=== PATIENT | female | born 1930 | race Caucasian/White ===

== ENCOUNTER → 2017-08-27 | Outpatient (CLI) | payer MEDICARE, OTHER ==
--- NOTE | 2017-08-27 09:29 | RAD ---
EXAM DESCRIPTION: Shoulder,Left 2 or More Views CLINICAL HISTORY: PAIN IN left SHOULDER COMPARISON: None Available. TECHNIQUE: Four views of the left shoulder. FINDINGS: There is minimal change between internal and external rotation views rotation. Degenerative changes are seen at the humeral head with eroded sclerotic appearance of the glenoid fossa consistent with chronic cartilage loss. Tendon suture anchor seen in the proximal humerus. On the transaxillary view, deformity suggests old healed fracture. Mild degenerative changes are seen in the lower C-spine. IMPRESSION: Degenerative changes as described. Electronically signed by: Oumar Bowles MD 08/27/2017 9:27 AM CDT
== END ==
LOC: RAD 08:14
PROVIDERS: ATTEND Orthopaedic Surgery
DX: M25.512 Pain in left shoulder (principal)

== ENCOUNTER → 2017-10-29 | Outpatient (CLI) | payer MEDICARE, OTHER ==
--- NOTE | 2017-10-29 11:12 | CT ---
CT right shoulder without contrast INDICATION: Rotator cuff syndrome shoulder pain TECHNIQUE: Helical CT images the right shoulder with multiplanar reformats This exam was performed according to our departmental dose-optimization program, which includes automated exposure control, adjustment of the mA and/or kV according to patient size and/or use of iterative reconstruction technique. FINDINGS: There is advanced glenohumeral osteoarthrosis. There are 2 metallic suture anchors in the greater tuberosity related to prior rotator cuff repair. Prominent osteophytes throughout the glenohumeral joint with subchondral cysts and joint space narrowing. Prominent osteophytes along the bicipital groove as well. No soft tissue mass or pathologic adenopathy in the imaged region. There is retroversion of the glenoid related to the osteoarthrosis without decentering of the humerus. Mild narrowing of the subacromial space. Previous subacromial decompression. Generalized grade 1 fatty marbling of the rotator cuff muscle bellies without end-stage atrophy. Bones are osteopenic or osteoporotic. IMPRESSION: Advanced osteoarthrosis right glenohumeral joint with retroversion of the glenoid but no decentering of the humerus Electronically signed by: Nasir Ramsey MD 10/29/2017 11:04 AM CDT
== END ==
LOC: CT 10:14
PROVIDERS: ATTEND Orthopaedic Surgery
DX: M75.101 Unspecified rotator cuff tear or rupture of right shoulder, not specified as traumatic (principal); M19.011 Primary osteoarthritis, right shoulder

== ENCOUNTER → 2017-11-21 | Outpatient (CLI) | payer MEDICARE, OTHER ==
--- NOTE | 2017-11-22 09:54 | CT ---
CT right shoulder without contrast INDICATION: Primary osteoarthrosis shoulder pain preoperative planning protocol TECHNIQUE: Helical CT images right shoulder This exam was performed according to our departmental dose-optimization program, which includes automated exposure control, adjustment of the mA and/or kV according to patient size and/or use of iterative reconstruction technique. FINDINGS: Multifocal scarring in the right lung without focal mass. The field of view is primarily scapula. Portions of the humerus are not included on the study. There is advanced osteoarthrosis of the glenohumeral joint with prominent subchondral cysts and [id number] joint space narrowing. There is retroversion of the glenoid. No decentering of the humerus. No aggressive destructive process. Prominent osteophytes. Evidence of previous subacromial decompression IMPRESSION: Preoperative planning protocol CT right shoulder with only partial visualization of the humerus centered over the scapula Advanced osteoarthrosis of the right glenohumeral joint Metallic suture anchors noted on the waiter/waitress tourist class film over the humerus not visible on the axial images. Electronically signed by: Nasir Ramsey MD 11/22/2017 9:52 AM CDT
== END ==
LOC: CT 13:06
PROVIDERS: ATTEND Orthopaedic Surgery
DX: M19.011 Primary osteoarthritis, right shoulder (principal)

== ENCOUNTER → 2017-12-06 | Outpatient (CLI) | payer MEDICARE, OTHER | LOC: LAB.O 16:29 | PROVIDERS: ATTEND Orthopaedic Surgery | DX: Z01.818 Encounter for other preprocedural examination (principal) ==

== ENCOUNTER 2017-12-19 05:08 | Inpatient (IN) | payer MEDICARE, OTHER ==
--- NOTE | 2017-12-14 11:01 | HP ---
CHIEF COMPLAINT: Right shoulder pain. HISTORY OF PRESENT ILLNESS: Ms. Madrid is an 87-year-old female with a history of pain in the right shoulder. She has a known rotator cuff tear with severe retraction. She has developed arthritis secondary to this tear. Because of failure of conservative measures and limitations in activities, she has requested operative intervention. After discussing the risks, benefits and alternatives to operative intervention which for her would include total shoulder arthroplasty, the patient has given informed consent. PAST SURGICAL HISTORY: 1. Tonsillectomy. 2. Exploratory laparotomy. 3. Thyroidectomy. 4. Laminectomy. 5. Cholecystectomy. 6. Bilateral rotator cuff repair. MEDICATIONS: 1. Bactrim. 2. Clopidogrel. 3. Dexamethasone. 4. Flonase/fluticasone. 5. Furosemide. 6. Levothyroxine. 7. Lisinopril. 8. Nexium. 9. Potassium. 10. Pravastatin. 11. Prednisone. 12. Rifampin. 13. Synthroid. 14. Voltaren Gel. ALLERGIES: NO KNOWN DRUG ALLERGIES. CODE STATUS: DNR. IMMUNIZATIONS: Up to date. FAMILY HISTORY: None pertinent to today's complaint. SOCIAL HISTORY: The patient does not drink, smoke or use any illicit drugs. REVIEW OF SYSTEMS: Negative except as indicated in the History of Present Illness. PHYSICAL EXAMINATION: VITAL SIGNS: Blood pressure 172/79. Pulse 77. Height 5'2". Weight 147 pounds. MENTAL STATUS: The patient is awake, alert, and is able to give a good history and participate in the physical. The patient is oriented to person, place and time. SKIN: Normal tone and turgor. HEENT: Normocephalic, atraumatic. Pupils equal, round and reactive. Mucosal membranes are moist. NECK: Normal range of motion. No thyromegaly, no lymphadenopathy. CHEST: Normal respiratory excursion. CARDIAC: Regular rate and rhythm. No murmurs, rubs or gallops. MUSCULOSKELETAL: The bilateral lower extremities show full range of motion without significant pain. She has intact sensation in both extremities and they are warm and well perfused. She has no deformity. She has no laxity and no malalignment. The left upper extremity shows some pain with range of motion of the shoulder, but she does maintain full abduction and forward flexion. She has no deformity and no crepitus. Sensation is intact. Community Health Worker strength is 5/5. The right upper extremity shows about 80 degrees of abduction today with severe pain at the terminal portion of that range. She has forward flexion to about 90 degrees. She does have crepitus throughout her range of motion. There is no deformity and no malalignment. Community Health Worker strength is 5/5. Sensation is intact. She has decreased strength in abduction as well as forward flexion. IMAGING: X-ray showed and MRI both show severe arthritis. MRI does show retracted tear of the rotator cuff. ASSESSMENT: 1. Rotator cuff arthropathy. PLAN: The plan at this point is for reverse total shoulder. We have discussed the risks, benefits, and alternatives to that and the patient has given informed consent. [facility][id number] [facility]
[2017-12-19] MEDS ORDERED: VANCOMYCIN HCL INJ 1,000 MG VIAL IVPB ONE ×3 (05:59→17:53)
[2017-12-19] MEDS ORDERED: SODIUM CHL 0.9% 100ML MINI-BAG 100 ML IVPB ONE (05:59)
[2017-12-19] MEDS ORDERED: LACTATED RINGERS 1,000 ML ONE (05:59)
[2017-12-19] MEDS ORDERED: ceFAZolin SODIUM 1 GM VIAL ONE ×3 (06:00→09:33)
[2017-12-19] MEDS ORDERED: SODIUM CHLORIDE 0.9% 250ML 250 ML ONE ×2 (06:00→17:52)
[2017-12-19] MEDS ORDERED: SCOPOLAMINE PATCH 1.5MG 1 EA TD ONE (06:00)
[2017-12-19] MEDS ORDERED: fentaNYL CITRATE INJ 50 MCG/ML AMP ONE (06:26)
[2017-12-19] MEDS ORDERED: MIDAZOLAM INJ 2 MG/2 ML VIAL ONE (06:26)
[2017-12-19] MEDS ORDERED: CLINDAMYCIN IV 900MG 0 ML IVPB ONE (06:27)
[2017-12-19] MEDS ORDERED: ROCURONIUM BROMIDE 10 MG/ML VIAL ONE ×2 (06:27→08:28)
[2017-12-19] MEDS ORDERED: BUPIVACAINE 0.5% W/EPI 30 ML VIAL INJ ONE (06:29)
[2017-12-19] MEDS ORDERED: CLINDAMYCIN PHOSPHATE 150 MG/ML VIAL ONE (06:33)
[2017-12-19] MEDS ORDERED: CLINDAMYCIN IV 600MG 50 ML IVPB ONE ×3 (06:43→19:11)
[2017-12-19] MEDS ORDERED: CLINDAMYCIN 600 MG/50 ML IVPB ONE (07:25)
[2017-12-19] MEDS ORDERED: ACETAMINOPHEN IV 1000MG 100 ML ONE (07:41)
[2017-12-19] MEDS: VANCOMYCIN HCL INJ 1,000 MG VIAL IVPB ONE ×2 (08:12→09:34)
[2017-12-19] MEDS ORDERED: SUGAMMADEX SODIUM 200 MG/2 ML VIAL IV ONE (09:50)
[2017-12-19] MEDS ORDERED: BENZOCAINE-MENTH LOZ (CEPACOL) 1 EA LOZ MT PRN (09:55)
[2017-12-19] MEDS ORDERED: TEMAZEPAM 15 MG CAP PO PRN (09:55)
[2017-12-19] MEDS ORDERED: MAGNESIUM HYDROXIDE 30 ML UD PO PRN (09:55)
[2017-12-19] MEDS ORDERED: ACETAMINOPHEN 325 MG TAB PO PRN (09:55)
[2017-12-19] MEDS ORDERED: BISACODYL SUPPOSITORY 10 MG PR PRN (09:55)
[2017-12-19] MEDS ORDERED: ALUMINUM & MAGNESIUM HYDROXIDE 30 ML UD PO PRN (09:55)
[2017-12-19] MEDS ORDERED: ZOLPIDEM TARTRATE 5 MG TAB PO PRN (09:55)
[2017-12-19] MEDS ORDERED: LIDOCAINE 1% 10 ML VIAL INJ ONE (10:00)
[2017-12-19] MEDS ORDERED: PROPOFOL 200 MG/20 ML VIAL IV ONE (10:00)
[2017-12-19] MEDS ORDERED: ePHEDrine SULF 50 MG/ML IV ONE (10:00)
[2017-12-19] MEDS ORDERED: METOCLOPRAMIDE HCL INJ 10 MG/2 ML VIAL IV ONE (10:00)
[2017-12-19] MEDS ORDERED: raNITIdine HCL INJ 25 MG/ML VIAL IV ONE (10:00)
[2017-12-19] MEDS ORDERED: DEXAMETHASONE INJ 10 MG/ML VIAL IV ONE (10:00)
[2017-12-19] MEDS ORDERED: HYDROmorphone HCL INJ 2 MG/ML VIAL ONE (10:00)
[2017-12-19] MEDS ORDERED: MORPHINE PCA 1 MG/ML 100 ML BAG IVPB SCH (10:30)
--- NOTE | 2017-12-19 12:54 | RAD ---
EXAM DESCRIPTION: Shoulder,Right 2 or More Views CLINICAL HISTORY: 87 years Female, post-op COMPARISON: None. FINDINGS: Two views of the right shoulder show postoperative changes related to reverse shoulder arthroplasty. No hardware or other surgical complication is identified. Widening of the right AC joint does not appear acute but may be related to more remote surgery. No suspicious radiopaque foreign body or soft tissue gas. IMPRESSION: Uncomplicated postoperative changes in the right shoulder as detailed above. Electronically signed by: Valente Crane MD 12/19/2017 12:53 PM CDT
[2017-12-19] MEDS ORDERED: DEX 5% W/NACL 0.45% 1000ML 1,000 ML IVS PRN (13:14)
[2017-12-19] MEDS ORDERED: SODIUM CHLORIDE 0.9% (FLUSH) 10 ML SYG IV PRN (14:17)
[2017-12-19] MEDS ORDERED: IV SET AND CAP CHANGE INJ INJ SCH (14:30)
[2017-12-19] MEDS: CLOPIDOGREL 75 MG TAB PO SCH (14:43)
[2017-12-19] MEDS: CLINDAMYCIN IV 600MG 600 MG in PREMIX BAG 1 BAG IVPB SCH ×3 (14:45→20:30)
--- NOTE | 2017-12-19 15:27 | OP ---
DATE OF PROCEDURE: 12/19/17 PREOPERATIVE DIAGNOSIS: 1. Rotator cuff arthropathy. POSTOPERATIVE DIAGNOSIS: 1. Rotator cuff arthropathy. PROCEDURE: 1. Reverse total shoulder replacement. SURGEON: William Verduzco MD. DUMP OPERATOR: Chad Goddard CST, SA-Monique. ANESTHESIA: General anesthesia. COMPLICATIONS: None. FINDINGS: Severe arthritis with full thickness retracted tear of the supraspinatus. There was additionally what appeared to be thrombosis of the cephalic vein as it was not compressible upon identification. Large osteophytes on glenoid and humerus. INDICATION: Ms. Madrid has a history of severe shoulder pain that has been refractory conservative measures. She had previous rotator cuff repair. Unfortunately that failed and Ms. Madrid requested operative intervention. After discussing the risks, benefits and alternatives to that, she gave informed for that. PROCEDURE: The patient was brought to the Operating Room and placed in the supine position. General anesthesia was induced. The patient was transitioned into the beach chair position. Following transitioning into the beach chair position, an incision was made in line with the deltopectoral interval. The interval was developed and the clavipectoral fascia was opened. The anterior humeral circumflex vessels were identified and tied off. The subscapularis was elevated and the axillary nerve was identified. The axillary nerve was protected throughout. The shoulder was dislocated and proximal humeral cut was made. Following the proximal humeral cut, trialing was performed with sequential reaming and broaching. Subsequent to that, the broach was left in place and the glenoid was exposed. A central glenoid wire was placed and subsequently reaming was performed. Following reaming, a size 32 baseplate was applied. The glenosphere was placed. A trial humeral head was placed and the shoulder was reduced. There was no noted impingement. There was no pending dislocation. The shoulder was re-dislocated and the trial component was removed. The final component was impacted into place and the final construct was reduced. It was taken through a range of motion. It was found to be stable without evidence of dislocation or impingement. The deltopectoral interval was reapproximated after thorough irrigation. Skin was closed with a combination of running and interrupted subcuticular stitches. Sterile dressings were applied. The patient was placed into an immobilizer and awoken from anesthesia. She was taken to the Recovery Room. POSTOPERATIVE PLAN: She will be doing range of motion with the arm. We will continue with activities of daily living and progress to strengthening in approximately six weeks. #[id number] [facility]
[2017-12-19] MEDS: ONDANSETRON INJ 4 MG/2 ML VIAL IV PRN ×2 (16:14→23:07)
[2017-12-19] MEDS: VANCOMYCIN HCL INJ 1,000 MG in SODIUM CHLORIDE 0.9% 250ML 250 ML IVPB SCH (17:57)
[2017-12-19] MEDS: POLYETHYLENE GLYCOL 3350 17 GM PCKT PO SCH (20:35)
--- NOTE | 2017-12-20 01:32 | CONS ---
DATE OF CONSULTATION: 12/19/17 SUPERVISING PHYSICIAN: Pipo Sullivan M.D. REASON FOR CONSULTATION: Right shoulder total arthroplasty. HISTORY OF PRESENT ILLNESS: Ms. Madrid is an 87 year-old female patient who has a longstanding history of pain in the right shoulder as well as osteoarthritis and rheumatoid arthritis. She has had a known rotator cuff tear with severe retraction per Dr. Verduzco and she developed arthritis secondary to the tear. She has received multiple attempts with conservative measures as an outpatient, but failed to receive any significant benefit, and had significant limitations due to the pain. She then requested elective operative intervention , including a total shoulder replacement by Dr. William Verduzco. She was admitted today for a total right shoulder arthroplasty. She was seen in the immediate postoperative state in stable condition. PAST MEDICAL HISTORY: 1. Surgical induced hypothyroidism. 2. Previous myocardial infarction. 3. Hypertension. 4. Gastroesophageal reflux disease. 5. Congestive heart failure with no current echocardiogram available for review. 6. Seasonal allergies. 7. Psoriasis. 8. Rheumatoid arthritis. 9. Hypercholesterolemia. PAST SURGICAL HISTORY: 1. Tonsillectomy. 2. Exploratory laparotomy. 3. Thyroidectomy. 4. Laminectomy. 5. Cholecystectomy. 6. Bilateral rotator cuff repairs. CURRENT MEDICATIONS: 1. Micro-K 20 mEq daily. 2. Centrum silver 1 tablet daily. 3. Lisinopril 1 tablet daily. 4. [place] 10/325 one tablet every 6 hours as needed for pain. 5. Flonase 2 puffs each nostril daily as needed. 6. Vitamin D 50,000 units daily as needed. 7. Plavix 75 mg daily. 8. Calcium supplement 150 mg daily. 9. Nexium 40 mg daily. 10. Levothyroxine 137 mcg daily. 11. Lasix 20 mg daily as needed. ALLERGIES: PENICILLIN G. FAMILY HISTORY: Significant for congestive heart failure in father. SOCIAL HISTORY: The patient lives in [place], [place]. She is retired. . She does not drink alcohol. She has never smoked tobacco. Does not use illicit drugs. REVIEW OF SYSTEMS: CONSTITUTIONAL: Denied any fevers, chills, body aches or unintentional weight loss. HEENT: Denied any nasal congestion, sore throat. Does have history of seasonal allergies but has no ear aches or headaches. RESPIRATORY: Denies any coughing, shortness of breath or wheezing. CARDIOVASCULAR: Denies any chest pains, palpitations, dyspnea or syncopal episodes or lower extremity edema. GASTROINTESTINAL: Denies any nausea, vomiting, diarrhea or constipation or any abdominal pains. GENITOURINARY: Denies any dysuria, hematuria, polyuria or other urinary symptoms. 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 MUSCULOSKELETAL: As noted in history of present illness. NEUROLOGIC: Denies any neurological deficits or sensory deficits. No syncopal episodes. No ataxia. No seizures. PHYSICAL EXAMINATION: VITAL SIGNS: Temperature 96.4, pulse 71, blood pressure 150/72, respirations 14 , satting 96% on room air. CONSTITUTIONAL: The patient is resting comfortably utilizing her MAIL PROCESSOR pump. She says she does have a little nausea with the pain medicine but is well controlled. She is well nourished and well hydrated, in no acute distress. HEENT: Tympanic membranes are clear bilaterally. Oropharynx is pink and moist without any lesions. NECK: Supple, non-tender with full range of motion. No jugular venous distention. CHEST: Lungs are clear to auscultation bilaterally without any rhonchi, wheezing or rales. HEART: Regular rate and rhythm without appreciable murmurs, gallops, or rubs. ABDOMEN: Soft, non-tender. Positive bowel sounds. EXTREMITIES: Right shoulder has a dressing in place and arm is in a sling. Distally capillary refill is brisk. She has good stock holder. No sensory deficits noted. Radial pulse is strong. NEUROLOGIC: She is alert and oriented times three. LABORATORY: No laboratory pending. RADIOLOGY: Postoperative shoulder x-ray per radiology interpretation shows uncomplicated postoperative changes in the right shoulder. Please see that report for full details. ASSESSMENT: 1. Immediate postoperative day zero for a total right shoulder arthroplasty per orthopedic services, Dr. Verduzco. 2. History of bilateral rotator cuff repairs resulting in significant arthritis and failure to respond to outpatient treatment measures requiring elective intervention as noted in #1. 3. 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 4. History of previous myocardial infarction. 5. Hypertension, controlled. 6. Gastroesophageal reflux disease on Nexium. 7. Congestive heart failure with no echocardiogram available for review with no signs of exacerbation. 8. Seasonal allergies. 9. Hypercholesterolemia. 10. Psoriasis. 11. Rheumatoid arthritis. PLAN: Will follow the patient postoperatively as she continues with her physical therapy and rehabilitation efforts. She will be on standard DVT prophylaxis with anticipation of discharging in one to two days if medically stable. She is on a MAIL PROCESSOR pain pump and this will need to be discontinued and her transitioned to oral pain medications. Care plan currently is to transition pain medications in the morning. She is advanced in age and has several medical commodities so it may be a slow transition to ensure she is safe to discharge and has adequate pain control. Will defer surgical management postoperatively to Dr. Verduzco and Physical Therapy. Will keep a close eye on her blood pressure. Will resume her home medications once they have been updated and verified in the medical records. Will continue to encourage deep breathing exercises to prevent postoperative respiratory complications. Until discharge, will continue to monitor and treat appropriately. #[id number] [facility]
[2017-12-20] MEDS ORDERED: CLINDAMYCIN IV 600MG 50 ML IVPB ONE ×4 (01:54→19:43)
[2017-12-20] MEDS: CYCLOBENZAPRINE HCL 10 MG TAB PO PRN ×2 (01:59→11:46)
[2017-12-20] MEDS: HYDROcodone 5MG/APAP 325MG 1 EA TAB PO PRN ×5 (01:59→23:56)
[2017-12-20] MEDS: CLINDAMYCIN IV 600MG 600 MG in PREMIX BAG 1 BAG IVPB SCH ×4 (02:00→19:51)
[2017-12-20] MEDS ORDERED: SODIUM CHLORIDE 0.9% 250ML 250 ML ONE ×2 (05:15→19:43)
[2017-12-20] MEDS ORDERED: VANCOMYCIN HCL INJ 1,000 MG VIAL IVPB ONE (05:17)
[2017-12-20] MEDS: LEVOTHYROXINE SODIUM 0.025 MG TAB PO SCH (06:22)
[2017-12-20] MEDS: PANTOPRAZOLE SODIUM TAB 40 MG PO SCH (06:22)
[2017-12-20] MEDS: LEVOTHYROXINE SODIUM 0.112 MG TAB PO SCH (06:22)
[2017-12-20] MEDS: VANCOMYCIN HCL INJ 1,000 MG in SODIUM CHLORIDE 0.9% 250ML 250 ML IVPB SCH (06:22)
--- NOTE | 2017-12-20 08:02 | PN ---
DATE: 12/19/17 POSTOPERATIVE CHECK SUBJECTIVE: She is doing well and her pain is well controlled. OBJECTIVE: Afebrile. Vital signs stable. Dressing is clean, dry and intact. ASSESSMENT: Status post reverse total shoulder arthroplasty. PLAN: The plan at this point is for her to begin passive range of motion. #[id number] [facility]
--- NOTE | 2017-12-20 08:03 | PN ---
DATE: 12/20/17 SUBJECTIVE: She is doing well right now. She had a little bit of pain overnight. OBJECTIVE: Afebrile. Vital signs stable. Dressing is clean, dry and intact. ASSESSMENT: Status post reverse shoulder arthroplasty. PLAN: The plan at this point is for discharge today after physical therapy. We will do outpatient physical therapy on her and progress as tolerated. [facility][id number] [facility]
[2017-12-20] MEDS: LISINOPRIL 10 MG TAB PO SCH (08:04)
[2017-12-20] MEDS: MULTIPLE VITAMINS W/ MINERALS 1 EA TAB PO SCH (08:04)
[2017-12-20] MEDS: FUROSEMIDE 40 MG TAB PO SCH (08:05)
[2017-12-20] MEDS: POTASSIUM CHLORIDE 20 MEQ TAB PO SCH (08:05)
[2017-12-20] MEDS: CLOPIDOGREL 75 MG TAB PO SCH (08:08)
[2017-12-20] MEDS: CALCIUM 150 MG PO SCH (15:16)
--- NOTE | 2017-12-20 18:48 | RAD ---
EXAM DESCRIPTION: Chest,2 Views CLINICAL HISTORY: 87 years Female fever s/p day 1 total shoulder arthoplasty COMPARISON: 08/12/2012 FINDINGS: Lungs are hyperinflated. Prosthetic shoulder in place. Small bilateral effusions and basilar atelectasis. Looped tubing is noted over the right lung base. Calcification in aorta. No evidence of consolidation. Bony demineralization. IMPRESSION: Pulmonary hyperinflation with blunting of the posterior sulci which may reflect small effusions No additional evidence of acute process Status post right shoulder arthroplasty Electronically signed by: Randa Villasenor MD 12/20/2017 6:46 PM CDT
[2017-12-20] MEDS ORDERED: DOXYCYCLINE HYCLATE IV 100 MG VIAL IVPB ONE (19:43)
[2017-12-20] MEDS ORDERED: SODIUM CHL 0.9% 50ML MIN-BAG+ 50 ML IVPB ONE (19:45)
[2017-12-20] MEDS ORDERED: cefTRIAXone SODIUM 1 GM VIAL ONE (19:45)
[2017-12-20] MEDS: POLYETHYLENE GLYCOL 3350 17 GM PCKT PO SCH (20:01)
[2017-12-20] MEDS: DOXYCYCLINE HYCLATE IV 100 MG in SODIUM CHLORIDE 0.9% 250ML 250 ML IVPB SCH (20:49)
[2017-12-20] MEDS ORDERED: ENOXAPARIN SODIUM 40 MG/0.4 ML SYG SUBCU ONE (21:44)
[2017-12-20] MEDS ORDERED: cefTRIAXone SODIUM 1 GM in SODIUM CHL 0.9% 50ML MIN-BAG+ 50 ML IVPB SCH (22:00)
--- NOTE | 2017-12-20 22:20 | PN ---
DATE: 12/20/17 SUPERVISING PHYSICIAN: Pipo Sullivan M.D. SUBJECTIVE: The patient this morning was taken off the COGNOS ARCHITECT pump and started on Flexeril and oral [place]. She has had some fairly good pain control but had started having some hallucinations and some slight confusion after the Flexeril administration this afternoon. She also was noted to run a fever of 102.1. Again, I have discussed with the family that the fever more likely is related to atelectasis and encouraged the patient to continue with deep breathing exercises as well as reinforce that more likely the acute changes from the Flexeril will resolve. I have listed Flexeril now as an allergy for an adverse reaction. I have also discussed that given the changes acutely today and the fever, will need to keep the patient at least another 24 hours. I also discussed the plan of care with Dr. Verduzco and he is in agreement that more likely the cause of the fever was postoperative atelectasis, but on the same point will go ahead and check a urinalysis and get a chest x-ray. Also, after further discussion with , will go ahead and start her on some doxycycline in anticipation of discharging ultimately on 7 days of doxycycline given that she has had a previous history of MRSA. She has had no additional nausea today and appears to be tolerating diet well, and has participated with Physical Therapy. OBJECTIVE: VITAL SIGNS: T max 102.1, pulse 82, blood pressure 121/80, satting 93% on room air. I's and O's show a weight 67.6. She is having some gas but no bowel movements currently. Fluid balance appears to be fairly euvolemic. CHEST: Lung sounds were clear to auscultation, just slightly diminished towards the bases. There was no obvious rhonchi, wheezing or rales. HEART: Regular rate and rhythm. ABDOMEN: Soft, non-tender. Positive bowel sounds. EXTREMITIES: Right shoulder has an island dressing in place that is clean and dry. Arm is in a sling with pulses distally strong radially and capillary refill brisk. NEUROLOGIC: The patient is without any notable motor or sensory deficits, but is slightly confused compared to this morning when she was without any notable confusion, and at this point this afternoon she has had some mild hallucinations and is apparently talking to people that are not there , but is easily reoriented. LABORATORY: Chemistries showed electrolytes all to be within normal limits. Glucose 102, BUN and creatinine were within normal limits with creatinine 1.6. Urinalysis was pending. Chest x-ray, 2 view chest, per radiology interpretation showed pulmonary hyperinflation with blunting of the posterior sulci which may reflect a small pleural effusion but there was no evidence of acute process. ASSESSMENT: 1. Postoperative day 1 for a total right shoulder arthroplasty per orthopedic services, Dr. William Verduzco. 2. History of bilateral rotator cuff repair resulting in significant arthritis and failure to respond to outpatient treatment measures requiring elective intervention as noted in #1. 3. Fever postoperatively likely due to postoperative atelectasis with no obvious evidence of infection. 4. Mild confusion secondary to adverse reaction to Flexeril and in combination with [place] with normal electrolytes and no other acute evidence of mental status changes. 5. History of previous myocardial infarction. 6. 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 7. Hypertension, controlled. 8. Gastroesophageal reflux disease on Nexium. 9. Congestive heart failure with no echocardiogram available for review and no signs of exacerbation. 10. Seasonal allergies. 11. Hypercholesterolemia. 12. Psoriasis. 13. Rheumatoid arthritis. PLAN: Given the patient is having some adverse reactions to Flexeril and has run a temperature today, will plan to keep the patient overnight for close observation. I have discontinued the Flexeril and made that as an adverse reaction allergy. I did discuss with Dr. Verduzco current findings as noted above and he is in agreement. Will go ahead and start the patient on some doxycycline as well as some Rocephin tonight with anticipation of discharging tomorrow on p.o. doxycycline for a week course. Will await urinalysis to further assess for any occult infections. I have again encouraged to utilize incentive spirometry and ambulate to prevent further fevers due to atelectasis. She is having good pain control with the [place]. She has had no other complications. No longer having any nausea, so therefore if she resolves current confusion, will plan to discharge tomorrow. Her discharge planning includes continued rehabilitation efforts through home health in [place] with [facility]. Again, will continue to monitor closely. Anticipate discharging tomorrow. Until then, treat appropriately. #[id number] [facility]
[2017-12-21] MEDS ORDERED: CLINDAMYCIN IV 600MG 50 ML IVPB ONE ×2 (00:38→07:02)
[2017-12-21] MEDS: CLINDAMYCIN IV 600MG 600 MG in PREMIX BAG 1 BAG IVPB SCH ×3 (01:38→14:07)
[2017-12-21] MEDS: HYDROcodone 5MG/APAP 325MG 1 EA TAB PO PRN ×2 (05:27→11:33)
[2017-12-21] MEDS: LEVOTHYROXINE SODIUM 0.025 MG TAB PO SCH (05:59)
[2017-12-21] MEDS: LEVOTHYROXINE SODIUM 0.112 MG TAB PO SCH (05:59)
[2017-12-21] MEDS: PANTOPRAZOLE SODIUM TAB 40 MG PO SCH (05:59)
[2017-12-21] MEDS ORDERED: DOXYCYCLINE HYCLATE IV 100 MG VIAL IVPB ONE (07:40)
[2017-12-21] MEDS ORDERED: SODIUM CHLORIDE 0.9% 250ML 250 ML ONE (07:40)
[2017-12-21] MEDS: DOXYCYCLINE HYCLATE IV 100 MG in SODIUM CHLORIDE 0.9% 250ML 250 ML IVPB SCH (08:43)
[2017-12-21] MEDS: MULTIPLE VITAMINS W/ MINERALS 1 EA TAB PO SCH (08:44)
[2017-12-21] MEDS: FUROSEMIDE 40 MG TAB PO SCH (08:44)
[2017-12-21] MEDS: POTASSIUM CHLORIDE 20 MEQ TAB PO SCH (08:44)
[2017-12-21] MEDS: CLOPIDOGREL 75 MG TAB PO SCH (08:44)
[2017-12-21] MEDS: LISINOPRIL 10 MG TAB PO SCH (08:44)
[2017-12-21] MEDS: CALCIUM 150 MG PO SCH (08:53)
--- NOTE | 2017-12-21 10:47 | PN ---
DATE: 12/21/17 SUBJECTIVE: Ms. Madrid has improved. OBJECTIVE: Afebrile. Vital signs stable. Wound is clean. There are no signs or symptoms of infection. ASSESSMENT: Status post reverse shoulder arthroplasty. PLAN: At this point, the plan is for discharge. She did have somewhat adverse reaction with some mental status changes yesterday after having Flexeril. She has fully recovered from that. I have given instructions on appropriate wound care as well as appropriate activities. She is going to followup with us in about one week. She has been instructed to return immediately should any change in her condition occur. [facility][id number] [facility]
[2017-12-21 10:48] VITALS: BP 123/70; TEMP 98.5; O2SAT 98
[2017-12-21] MEDS ORDERED: ENOXAPARIN SODIUM 40 MG/0.4 ML SYG SUBCU SCH (21:00)
--- NOTE | 2018-01-01 13:21 | DS ---
SUPERVISING PHYSICIAN: Pipo Sullivan MD ADMISSION DIAGNOSIS: 1. Elective total right shoulder arthroplasty. 2. History of bilateral rotator cuff repairs resulting in significant arthritis and failure to respond to outpatient treatment measures requiring elective intervention as noted in #1. 3. 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 4. History of previous myocardial infarction. 5. Hypertension, controlled. 6. Gastroesophageal reflux disease, controlled on Nexium. 7. Congestive heart failure with no echocardiogram available for review with no signs of exacerbation. 8. Seasonal allergies. 9. Hypercholesterolemia. 10. Psoriasis. 11. Rheumatoid arthritis. DISCHARGE DIAGNOSIS: 1. Postoperative day 3 for a total right shoulder arthroplasty per orthopedic services, Dr. William Verduzco. 2. History of bilateral rotator cuff repairs resulting in significant arthritis and failure to respond to outpatient treatment measures requiring elective intervention as noted in #1. 3. 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 4. History of previous myocardial infarction. 5. Hypertension, controlled. 6. Gastroesophageal reflux disease, controlled on Nexium. 7. Congestive heart failure with no echocardiogram available for review with no signs of exacerbation. 8. Seasonal allergies. 9. Hypercholesterolemia. 10. Psoriasis. 11. Rheumatoid arthritis. REASON FOR HOSPITALIZATION: Ms. Madrid is an 87-year-old female patient who has a longstanding history of pain in the right shoulder as well as osteoarthritis and rheumatoid arthritis. She has had a known rotator cuff tear with severe retraction per Dr. Verduzco and she developed arthritis secondary to the tear. She has received multiple attempts with conservative measures as an outpatient, but failed to receive any significant benefit, and had significant limitations due to the pain. She then requested elective operative intervention , including a total shoulder replacement by Dr. William Verduzco. She was admitted today for a total right shoulder arthroplasty. She was seen in the immediate postoperative state in stable condition. LABORATORY: Postoperative chemistries showed normal electrolytes. BUN 12, creatinine 1.16. Urinalysis shows trace lysed blood, otherwise within normal limits. MICROBIOLOGY: MRSA surveillance culture was negative for methicillin-resistant Staphylococcus aureus. CONSULTATION: Hospitalist service. PROCEDURES: Dr. Verduzco for reverse total shoulder replacement. Please see his operative notes for details. HOSPITAL COURSE: Ms. Madrid was admitted on 12/19/17 for an elective right total shoulder replacement. She was seen in the immediate postoperative phase and was in stable condition. She had no complications intraoperatively and had good pain control. She was able to participate with physical therapy. She did have some issues with nausea that resolved once she was taken off the REDUCER pump. She was to be discharged initially on 12/20/17, however, on the afternoon of discharge, she started having some mild confusion secondary to muscle relaxers and had to stay an additional night. On the morning of discharge, the patient was back to her baseline mental status with no confusion. Recommendations were not to utilize any muscle relaxers as she had an adverse reaction. She did run a low grade fever which was attributed to just general atelectasis postoperatively with no other signs of infection. I did discuss with Dr. Verduzco the patient's findings and he had planned to discharge the patient home on doxycycline for a week given that she did have a history of previous MRSA. She was found to be in stable condition and able to continue with outpatient management which had been arranged through [facility] in [place]. PLAN: Ms. Madrid was discharged on 12/21/17 with instructions to followup with Dr. Verduzco as scheduled. She was to resume her usual diet. Activities were to be as per physical therapy and increase as tolerated. No pushing or pulling with the affected limb. She could shower, but no tub baths. Wound management was per Dr. Verduzco's instructions. Rehab was to occur through [facility] in [place]. She was instructed to take Zofran for nausea associated with pain medicines and to call Dr. Verduzco with any questions or concerning symptoms and to return to the hospital should she have any other issues arise. NEW MEDICATIONS AT DISCHARGE: 1. Doxycycline 100 mg twice daily, #20. 2. Zofran 4 mg q.6h. as needed, #8. Condition discharge was stable and improved. #[id number] [facility]
== END 2017-12-21 14:07 | disposition home health service (06) | DRG 483 ==
LOC: AMB 05:08 → MS 11:45
PROVIDERS: ADMIT Orthopaedic Surgery; ATTEND Nurse Practitioner Family
PROC: 0RRJ00Z Replacement of Right Shoulder Joint with Reverse Ball and Socket Synthetic Substitute, Open Approach (ICD-10-PCS; principal; 2017-12-19 07:10)
DX: M19.011 Primary osteoarthritis, right shoulder (principal); J98.11 Atelectasis; I82.611 Acute embolism and thrombosis of superficial veins of right upper extremity; R41.82 Altered mental status, unspecified; T48.1X5A Adverse effect of skeletal muscle relaxants [neuromuscular blocking agents], initial encounter; I11.0 Hypertensive heart disease with heart failure; I25.10 Atherosclerotic heart disease of native coronary artery without angina pectoris; M06.9 Rheumatoid arthritis, unspecified; K21.9 Gastro-esophageal reflux disease without esophagitis; E89.0 Postprocedural hypothyroidism; I25.2 Old myocardial infarction; I50.9 Heart failure, unspecified; L40.9 Psoriasis, unspecified; E78.00 Pure hypercholesterolemia, unspecified; Y92.230 Patient room in hospital as the place of occurrence of the external cause; Z98.890 Other specified postprocedural states; Z79.02 Long term (current) use of antithrombotics/antiplatelets; Z79.891 Long term (current) use of opiate analgesic; Z86.73 Personal history of transient ischemic attack (TIA), and cerebral infarction without residual deficits; Z87.891 Personal history of nicotine dependence; Z88.0 Allergy status to penicillin; Z86.14 Personal history of Methicillin resistant Staphylococcus aureus infection; Z79.52 Long term (current) use of systemic steroids; Z66 Do not resuscitate; Z79.899 Other long term (current) drug therapy

== ENCOUNTER → 2019-11-20 | Outpatient (CLI) | payer MEDICARE, OTHER ==
--- NOTE | 2019-11-20 12:42 | RAD ---
Single radiograph pelvis Indication: HIP PAIN LEFT Comparison: May 2006 Impression: No acute pelvic fracture identified. Evaluation for fracture is limited given the degree of osteopenia. If high clinical concern for acute fracture, correlation with MRI recommended given its greater sensitivity in the osteopenic patient. If the patient cannot tolerate MRI imaging or more urgent imaging is required, CT could be performed, however it is less sensitive in the osteopenic patient when compared to MRI. Mild to moderate bilateral hip osteoarthritis with joint space narrowing and tiny joint line osteophytes. Moderate pubic symphysis osteoarthritis. Osteopenia. If this is a new finding, DEXA scan recommended as well as evaluation for possible osteoporosis treatment. Electronically signed by: Sanjay Samayoa MD 11/20/2019 12:40 PM CDT
--- NOTE | 2019-11-20 12:42 | RAD ---
EXAM DESCRIPTION: Knee,Left Complete CLINICAL HISTORY: 89 years Female, PAIN IN LEFT KNEE COMPARISON: None. Findings: Four views/radiographs Location: Left knee No acute fracture or dislocation. Moderate medial compartment narrowing. Osteopenia. No significant joint effusion. IMPRESSION: Osteoarthritis of the left knee. No acute osseous abnormality. Electronically signed by: Larry Diaz MD 11/20/2019 12:40 PM CDT
== END ==
LOC: RAD 09:07
PROVIDERS: ATTEND Orthopaedic Surgery
DX: M17.12 Unilateral primary osteoarthritis, left knee (principal); M85.9 Disorder of bone density and structure, unspecified; M16.0 Bilateral primary osteoarthritis of hip; M25.751 Osteophyte, right hip; M25.752 Osteophyte, left hip